=== PATIENT | female | born 1945 | race Caucasian/White ===

== ENCOUNTER 2019-01-30 23:38 | Emergency (ER) | payer MEDICAID, OTHER ==
[~2019-01-30] VITALS: Ht 162.6 cm; Wt 64.0 kg
[~2019-01-30 23:38] MED LIST: ACET500C5 PO
[2019-01-30 23:57] VITALS: Ht 162.6 cm; Wt 64.0 kg
[2019-01-31 03:59] VITALS: BP 148/69; PULSE 85; RESP 18
--- NOTE | 2019-02-01 21:35 | ERD ---
ER Documentation Chief Complaint Chief Complaint tripped while walking 5 days ago, c/o pain/facial bruise, abrasions HPI 73-year-old female presents complaint of facial pain and bruises after tripping while walking 5 days ago. Patient denies any altered mental status, vomiting, amnesia, neck pain, vision problems, headache, preceding syncope, preceding lightheadedness, preceding chest pain, flank pain, abdominal pain. She has a history of hypertension. States she is taking aspirin but she has not taken any for the last 2 weeks. She does not regularly check her blood pressure. ROS All systems reviewed and are negative except as per history of present illness. Medications Home Meds Active Scripts Acetaminophen* (Tylophen*) 500 Mg Capsule, 1 CAP PO Q6H PRN for PAIN AND OR ELEVATED TEMP, #20 CAP Prov:TAYLOR ONTIVEROS 01/31/19 Allergies Allergies: Coded Allergies: No Known Drug Allergies (Verified Allergy, Unknown, 01/30/19) PMhx/Soc History of Surgery: Yes (HYSTERECTOMY) Hx Alcohol Use: No Hx Substance Use: No Hx Tobacco Use: No Smoking Status: Never smoker FmHx Family History: No diabetes, No coronary disease, No other Physical Exam Vitals Vital Signs Date Temp Pulse Resp B/P (MAP) Pulse Ox O2 O2 Flow FiO2 Time Delivery Rate 01/31/19 97.9 85 18 148/69 97 03:59 (95) 01/30/19 97.2 93 18 189/93 98 23:57 (125) Physical Exam General: Well developed, well nourished. No acute distress. Head: Raccoon eyes.. No hematomas, blood sign, or other signs of fracture. Eyes: PERRLA. No icterus, lesions, injection, or edema. Ears: No hematotympanum Nose: No rhinorrhea Neck: Full range of motion with no midline tenderness to palpation. Heart: RR w/o murmur, rubs, or gallops. Lungs: Clear to auscultation bilaterally w/o wheezes, crackles, rhonchi. Symmetric rise and fall. Equal breath sounds. Extremities: 5/5 strength and full ROM of upper and lower extremeties bilaterally. Distal sensation and pulses intact. Normal cap refill. Neuro: CN II through XII intact. Rapid alternating movement intact. No cerebellar or gait deficits. Strength and sensation intact. Alert and oriented x3. Psych: Normal mood and affect. Neuro: Results 24 hrs Current Medications Medications Dose Sig/Rafi Start Time Status Last (Trade) Ordered Route PRN Stop Time Admin Dose Reason Admin Clonidine 0.1 mg ONCE ONCE 01/31/19 DC (Catapres) PO 04:00 01/31/19 04:01 Procedures/MDM DIAGNOSTIC IMAGING REPORT Patient: JONNY SHARPE : 1945 Age: 73 Sex: F MR #: [id number] DOS: 01/31/19 0233 Ordering MD: TAYLOR ONTIVEROS Location: [facility] Room/Bed: PROCEDURE: CT Brain without contrast. CLINICAL INDICATION: Trauma TECHNIQUE: CT scan of the brain was performed on a multidetector high- resolution CT scan. Axial imaging was obtained of the brain without contrast administration. Coronal and sagittal reformatted images were obtained from the axial source images. Standard CT scan of the head without contrast protocols were performed. The total exam CTDI equals 28.94 mGy and the total exam DLP equals 321.03 mGy- cm. One or more of the following dose reduction techniques were used: - Automated exposure control. - Adjustment of the mA and/or kV according to patient size. Use of iterative reconstruction technique. Dicom images are available COMPARISON: None. FINDINGS: Ventricular system and peripheral CSF spaces are prominent consistent with mild generalized cerebral and cerebellar volume loss asymmetrically worse involving the frontal regions. No evidence of intracranial masses hemorrhages or midline shift. Hightower-white matter differentiation is unremarkable. The bones of the calvarium are intact. Calcific atherosclerotic vascular disease of the cavernous carotid arteries. Visualized paranasal sinuses and mastoids are unremarkable. IMPRESSION: 1. Mild generalized cerebral and cerebellar volume loss asymmetrically worse involving the frontal regions bilaterally. 2. Negative intracranial masses hemorrhages or midline shift. RPTAT:AAJJ Physician Jagdish Date Time Electronically viewed and signed by Physician Jagdish on 01/31/2019 03:16 BM/ CC: TAYLOR ONTIVEROS [id number] DIAGNOSTIC IMAGING REPORT Patient: JONNY SHARPE : 1945 Age: 73 Sex: F [id number] [id number] DOS: 01/31/19 0227 Ordering MD: TAYLOR ONTIVEROS Location: [facility] Room/Bed: PROCEDURE: CT scan of the orbits without contrast. CLINICAL INDICATION: Trauma TECHNIQUE: CT scan of the orbits without contrast was performed on a multidetector high-resolution CT scan. Standard CT scan of the orbits without contrast protocols were performed. The total exam CTDI equals 28.94 mGy and the total exam DLP equals 321.03 mGy- cm. One or more of the following dose reduction techniques were used: - Automated exposure control. - Adjustment of the mA and/or kV according to patient size. Use of iterative reconstruction technique. Dicom images are available COMPARISON: CT head same day FINDINGS: Small focal area of swelling/hematoma involving the right supra orbital region. No foreign body. The globes are symmetrical without proptosis or rupture. No intra or extra coronal fluid collections or masses. Optic nerves and ophthalmic muscles are unremarkable. Visualized paranasal sinuses well pneumatized without air fluid levels. No evidence of fractures. The temporomandibular joints are unremarkable. Mastoids unremarkable. Remaining facial soft tissues are visualized are unremarkable . IMPRESSION: 1. Small area swelling/hematoma right supra orbital region. No foreign bodies. 2. No evidence of fractures. 3. Globes intact without rupture or proptosis. No retrobulbar are hematomas. 4. No air-fluid levels seen within the paranasal sinuses. RPTAT:AAJJ Physician Jagdish Date Time Electronically viewed and signed by Physician Jagdish on 01/31/2019 03:20 BM/ CC: TAYLOR ONTIVEROS [id number] MDM: Given patient's physical exam and history decision was made to do a head CT as well as CT of orbits. All results within normal limits. Patient was hypertensive the case was discussed with my supervising physician who stated to give her clonidine and have her follow-up with primary care. I did discuss with patient that she is hypertensive and she would need to either adjust her start a new hypertensive medications. Patient understood and agreed to follow-up with primary within 24 hours. Upon reassessment patients diastolic went down to 148. I have low suspicion for hypertensive crisis, end organ damages, intracranial hemorrhage, elevated intracranial pressure, intracranial mass, aneurysm, meningitis, malignant hypertension, giant cell arteritis, carotid dissection, intracranial abscess, cerebral venous thrombosis, CO2 poisoning, or other emergent causes of headache based on patients history and exam] I have low suspicion for neurovascular compromise, compartment syndrome, fracture, osteomyelitis, septic joint, DVT, or other emergent condition. At this time, patient is stable for discharge and outpatient management. I have instructed the patient to follow-up with his/her primary care physician in 1-2 days. I have discussed with the patient the possibility of needing to see a specialist for further workup and imaging studies if symptoms persist. I have instructed the patient to promptly return to the ER for any new or worsening symptoms including but not limited to increased pain, fever, nausea, vomiting, weakness or LOC. The patient and/or family expressed understanding of and agreement with this plan. All questions were answered. Home care instructions were provided. Communication with patient both during the exam and instructions for discharge were performed with using a account executive sales representative . Patient gave verbal confirmation to the practitioner, through the account executive sales representative, that they understood everything that was being said to them. DISCLAIMER: Inadvertent spelling and grammatical errors are likely due to EHR/dictation software use and do not reflect on the overall quality of patient care. Also, please note that the electronic time recorded on this note does not necessarily reflect the actual time of the patient encounter. Departure Diagnosis: Primary Impression: Head trauma Additional Impressions: Fall Hypertension Condition: Stable Patient Instructions: HEAD INJURY, No Wake-Up (Adult) Referrals: [facility] YOU HAVE RECEIVED A MEDICAL SCREENING EXAM AND THE RESULTS INDICATE THAT YOU DO NOT HAVE A CONDITION THAT REQUIRES URGENT TREATMENT IN THE EMERGENCY DEPARTMENT. FURTHER EVALUATION AND TREATMENT OF YOUR CONDITION CAN WAIT UNTIL YOU ARE SEEN IN YOUR DOCTORS OFFICE WITHIN THE NEXT 1-2 DAYS. IT IS YOUR RESPONSIBILITY TO MAKE AN APPOINTMENT FOR FOLOW-UP CARE. IF YOU HAVE A PRIMARY DOCTOR --you should call your primary doctor and schedule an appointment IF YOU DO NOT HAVE A PRIMARY DOCTOR YOU CAN CALL OUR PHYSICIAN REFERRAL HOTLINE AT IF YOU CAN NOT AFFORD TO SEE A PHYSICIAN YOU CAN CHOSE FROM THE FOLLOWING FORMERLY [facility] [address] [facility] [address] [facility] [address] [facility] [address] [facility] [address] [facility]. [facility] [address] Additional Instructions: FOLLOW UP WITH YOUR PRIMARY CARE PHYSICIAN TOMORROW.Return to this facility if you are not improving as expected. TAYLOR ONTIVEROS Feb 01, 2019 21:35
== END 2019-01-31 04:00 | disposition home or self-care (01) ==
LOC: FTE 23:38
DX: S09.90XA Unspecified injury of head, initial encounter (principal); I10 Essential (primary) hypertension; R51 Headache; W01.0XXA Fall on same level from slipping, tripping and stumbling without subsequent striking against object, initial encounter; Y92.9 Unspecified place or not applicable
CPT/HCPCS: 70450; 70480; Z7502